=== PATIENT | female | born 1990 | race Asian ===

== ENCOUNTER 2020-12-08 19:31 | Emergency (ER) | payer OTHER ==
[~2020-12-08] VITALS: Ht 149.9 cm; Wt 52.2 kg
[2020-12-08 20:19] LABS: BASOPHILS % (AUTO) 0.5 % (0.0-2.0); EOSINOPHILS % (AUTO) 0.6 % (0.0-6.0); HEMATOCRIT 43 % (33-45); HEMOGLOBIN 14.6 g/dL (11.5-14.8); LYMPHOCYTES # (AUTO) 1.7 K/uL (0.8-4.8); LYMPHOCYTES % (AUTO) 21.9 % (20.0-44.0); MEAN CORPUSCULAR HGB CONC 34 g/dl (31.0-36.0); MEAN CORPUSCULAR VOLUME 102 fL (82-100); MONOCYTES # (AUTO) 0.5 K/uL (0.1-1.30); MONOCYTES % (AUTO) 6.7 % (2.0-12.0); NEUTROPHILS # (AUTO) 5.4 K/uL (1.8-8.9); NEUTROPHILS % (AUTO) 70.3 % (43.0-81.0); PLATELET COUNT (AUTO) 297 K/uL (150-450); RED BLOOD CELL COUNT(AUTO) 4.24 MIL/uL (4.0-5.2); WHITE BLOOD COUNT (AUTO) 7.6 K/uL (4.3-11.0)
--- NOTE | 2020-12-08 20:19 | NUR ---
URINE COLLECTED AND SENT TO LAB
[2020-12-08 20:23] LABS: BILIRUBIN,URINE Negative (NEGATIVE); COLOR,URINE YELLOW (YELLOW); LEUKOCYTE ESTERASE ,URINE Small (NEGATIVE); NITRITE, URINE Negative (NEGATIVE); PH,URINE 7.5 (5.0-8.0); PROTEIN,URINE Negative (NEGATIVE); UGLUCOSE Negative (NEGATIVE); UROBILINOGEN,URINE 0.2 EU/dL (0.2)
[2020-12-08] MEDS ORDERED: IV NS 0.9% 1,000 ML IV ONE (20:30)
[2020-12-08 20:37] LABS: CALCIUM, SERUM 8.4 mg/dL (8.5-10.1); CARBON DIOXIDE 30 mmol/L (21-32); CHLORIDE 104 mmol/L (98-107); CREATININE 0.7 mg/dL (0.6-1.3); GLUCOSE 98 mg/dL (74-106); POTASSIUM 4.2 mmol/L (3.5-5.1); SODIUM SERUM 139 mmol/L (136-145); UREA NITROGEN, BLOOD 13 mg/dL (7-18)
[2020-12-08 20:48] LABS: BACTERIA,URINE 1+ /HPF (None Seen); RBC,URINE NONE SEEN /HPF (0-2); SQUAMOUS EPITHELIAL CELL,UR Few /HPF (None Seen)
[2020-12-08] MEDS ORDERED: CEFTRIAXONE 1 G in IV D5W 50 ML IV ONE (21:00)
[2020-12-08] MEDS ORDERED: CEPH500T PO (21:11)
[2020-12-08] MEDS ORDERED: CEPH500C2 PO (21:11)
[2020-12-08] MEDS ORDERED: CEFTRIAXONE 1GM BAG (ER ONLY) 50 ML IV ONE (21:13)
--- NOTE | 2020-12-08 21:39 | NUR ---
pt is medically stable for d/c. IV removed. Catheter intact and site benign. Pressure and 4x4 applied to site. No bleeding noted.Patient discharged to home in stable condition. Rx and Written and verbal after care instructions given. Patient verbalizes understanding of instruction.
[2020-12-08 21:40] VITALS: BP 111/63
== END 2020-12-08 21:40 | disposition home or self-care (01) ==
LOC: ER 19:38
DX: R55 Syncope and collapse (principal); E86.0 Dehydration; N30.90 Cystitis, unspecified without hematuria
CPT/HCPCS: 36415; 80048; 81001; 84484; 84702; 85025; 87086; 93005; 96361; 96365; 99284; J0696; J7030

== ENCOUNTER 2021-01-28 20:38 | Emergency (ER) | payer OTHER ==
[~2021-01-28] VITALS: Ht 149.9 cm; Wt 50.8 kg
[~2021-01-28 20:38] MED LIST: CEPH500C2 PO; CEPH500T PO
[2021-01-29 00:12] VITALS: BP 123/69
--- NOTE | 2021-01-29 00:17 | NUR ---
Patient discharged to home in stable condition. Written and verbal after care instructions given. Patient verbalizes understanding of instruction.
== END 2021-01-29 00:18 | disposition home or self-care (01) ==
LOC: ER 20:42
DX: J06.9 Acute upper respiratory infection, unspecified (principal); Z20.822 Contact with and (suspected) exposure to COVID-19; Z86.16 Personal history of COVID-19
CPT/HCPCS: 71045; 87426; 99284; C9803

== ENCOUNTER 2021-02-07 17:32 | Emergency (ER) | payer OTHER ==
[~2021-02-07] VITALS: Ht 149.9 cm; Wt 50.8 kg
--- NOTE | 2021-02-07 17:32 | NUR ---
PT BIB SELF C/O LOWER ABDOMINAL PAIN FOR 3 WEEKS AND VAGINAL DISCHARGED. PT IS AAOX4, NOT IN RESPIRATORY DISTRESS, VS STABLE, KEPT RESTED AND COMFORTABLE. WILL CONTINUE TO MONITOR.
--- NOTE | 2021-02-07 17:55 | NUR ---
URINE SPECIMEN COLLECTED AND SENT TO LAB.
--- NOTE | 2021-02-07 18:03 | NUR ---
SEEN AND EXAMINED BY .
[2021-02-07 18:19] LABS: BILIRUBIN,URINE NEGATIVE (NEGATIVE); COLOR,URINE YELLOW (YELLOW); LEUKOCYTE ESTERASE ,URINE NEGATIVE (NEGATIVE); NITRITE, URINE NEGATIVE (NEGATIVE); PROTEIN,URINE NEGATIVE (NEGATIVE); UGLUCOSE NEGATIVE (NEGATIVE)
[2021-02-07 18:25] LABS: BACTERIA,URINE Few /HPF (None Seen); SQUAMOUS EPITHELIAL CELL,UR Few /HPF (None Seen); WBC,URINE 0-2 /HPF (0-3)
--- NOTE | 2021-02-07 18:26 | NUR ---
[employer] INTERN AT BEDSIDE FOR ULTRASOUND.
[2021-02-07] MEDS ORDERED: FLUC150T PO (19:27)
[2021-02-07] MEDS ORDERED: DOXY100T2 PO (19:27)
[2021-02-07] MEDS ORDERED: DOXYCYCLINE HYCLATE (100 MG) 100 MG TABLET PO ONE (19:30)
[2021-02-07] MEDS ORDERED: CEFTRIAXONE 500 MG VIAL IM ONE (19:30)
[2021-02-07] MEDS ORDERED: CEFTRIAXONE 500 MG VIAL ONE (19:31)
[2021-02-07] MEDS ORDERED: LIDOCAINE 1% INJ 50 ML MDV IJ ONE (19:31)
[2021-02-07] MEDS ORDERED: DOXYCYCLINE HYCLATE (100 MG) 100 MG TABLET ONE (19:32)
[2021-02-07 19:56] VITALS: BP 121/68
== END 2021-02-07 19:51 | disposition home or self-care (01) ==
LOC: ER 17:44
DX: R10.2 Pelvic and perineal pain (principal); N89.8 Other specified noninflammatory disorders of vagina; Z79.899 Other long term (current) drug therapy
CPT/HCPCS: 76856; 81001; 84703; 87210; 87491; 87591; 96372; 99284; A6403; J0696; J3490

== ENCOUNTER 2021-10-21 13:04 | Emergency (ER) | payer OTHER ==
[~2021-10-21] VITALS: Ht 149.9 cm; Wt 50.8 kg
[~2021-10-21 13:04] MED LIST changes: +DOXY100T2 PO; +FLUC150T PO
--- NOTE | 2021-10-21 13:40 | NUR ---
SEEN AND EXAMINED BY .
--- NOTE | 2021-10-21 13:47 | NUR ---
ER PHLEB AT BEDSIDE FOR BLOOD DRAW.
[2021-10-21] MEDS ORDERED: IBUPROFEN 600 MG TABLET PO ONE (14:00)
[2021-10-21] MEDS ORDERED: ACETAMINOPHEN ES 500 MG TABLET PO ONE (14:00)
[2021-10-21] MEDS ORDERED: ACETAMINOPHEN ES 500 MG TABLET ONE (14:03)
[2021-10-21] MEDS ORDERED: IBUPROFEN 600 MG TABLET ONE (14:03)
[2021-10-21 14:18] LABS: BASOPHILS % (AUTO) 0.5 % (0.0-2.0); EOSINOPHILS % (AUTO) 0.9 % (0.0-6.0); HEMATOCRIT 42 % (33-45); HEMOGLOBIN 14.1 g/dL (11.5-14.8); LYMPHOCYTES # (AUTO) 1.5 K/uL (0.8-4.8); LYMPHOCYTES % (AUTO) 24.2 % (20.0-44.0); MEAN CORPUSCULAR HGB CONC 34 g/dl (31.0-36.0); MEAN CORPUSCULAR VOLUME 101 fL (82-100); MONOCYTES # (AUTO) 0.5 K/uL (0.1-1.30); MONOCYTES % (AUTO) 8.3 % (2.0-12.0); NEUTROPHILS # (AUTO) 4.2 K/uL (1.8-8.9); NEUTROPHILS % (AUTO) 66.1 % (43.0-81.0); PLATELET COUNT (AUTO) 267 K/uL (150-450); RED BLOOD CELL COUNT(AUTO) 4.15 MIL/uL (4.0-5.2); WHITE BLOOD COUNT (AUTO) 6.4 K/uL (4.3-11.0)
[2021-10-21 14:28] LABS: CALCIUM, SERUM 8.8 mg/dL (8.5-10.1); CARBON DIOXIDE 29 mmol/L (21-32); CHLORIDE 104 mmol/L (98-107); CREATININE 0.7 mg/dL (0.6-1.3); GLUCOSE 96 mg/dL (74-106); SODIUM SERUM 137 mmol/L (136-145); UREA NITROGEN, BLOOD 12 mg/dL (7-18)
[2021-10-21 14:36] LABS: ALANINE AMINOTRANSFERASE 18 U/L (12-78); ALBUMIN 3.4 g/dL (3.4-5.0); ALKALINE PHOSPHATASE 50 U/L (46-116); ASPARTATE AMINOTRANSFERASE 15 U/L (15-37); BILIRUBIN,DIRECT 0.1 mg/dL (0.0-0.2); BILIRUBIN,TOTAL 0.3 mg/dL (0.2-1.0)
--- NOTE | 2021-10-21 15:00 | NUR ---
Status Quo in NO obvious distress. Awaiting all test results. Pt aware of plan of care
--- NOTE | 2021-10-21 16:13 | NUR ---
Patient discharged to home in stable condition. Written and verbal after care instructions given. Patient verbalizes understanding of instruction.
[2021-10-21 16:14] VITALS: BP 104/73
== END 2021-10-21 16:15 | disposition home or self-care (01) ==
LOC: ER 13:08
DX: R09.1 Pleurisy (principal); F17.200 Nicotine dependence, unspecified, uncomplicated; Z79.899 Other long term (current) drug therapy
CPT/HCPCS: 36415; 71045-TC; 80048-TC; 80076-TC; 83690-TC; 84484-TC; 84703-TC; 85025-TC; 85378-TC